=== PATIENT | male | born 1935 | race Caucasian/White ===

== ENCOUNTER 2020-06-17 09:47 | Outpatient (REF) | payer MEDICARE, SELFPAY ==
--- NOTE | ~2020-06-17 | XR_ITS ---
EXAMINATION: BILATERAL SHOULDER X-RAY CLINICAL INFORMATION: Pain COMPARISON: None TECHNIQUE: 4 views of each shoulder FINDINGS: Bone alignment is normal. No fracture or dislocation is seen. There is mild arthritis at the acromioclavicular and glenohumeral joints with joint space narrowing and osteophyte formation, left greater than right. Soft tissues are unremarkable. XR/XR shoulder LT min 2V IMPRESSION: Mild bilateral arthritis, left greater than right.
--- NOTE | ~2020-06-17 | XR_ITS ---
EXAMINATION: BILATERAL SHOULDER X-RAY CLINICAL INFORMATION: Pain COMPARISON: None TECHNIQUE: 4 views of each shoulder FINDINGS: Bone alignment is normal. No fracture or dislocation is seen. There is mild arthritis at the acromioclavicular and glenohumeral joints with joint space narrowing and osteophyte formation, left greater than right. Soft tissues are unremarkable. XR/XR shoulder RT min 2V IMPRESSION: Mild bilateral arthritis, left greater than right.
[2020-06-17 10:41] LABS: Cholesterol 139 mg/dL; HDL Cholesterol 50 mg/dL; LDL Cholesterol Calculated 71 mg/dl; Triglycerides 92 mg/dL; Uric Acid 5.6 mg/dL (3.4-7.0)
[2020-06-17 11:02] LABS: Erythrocyte Sedimentation Rate 23 MM/HR (0-15)
== END 2020-06-17 09:48 | disposition home or self-care (01) ==
LOC: HO.LAB 09:47
PROVIDERS: PCP Internal Medicine; Visit Provider Internal Medicine
DX: M25.512 Pain in left shoulder (principal); M25.511 Pain in right shoulder; G89.29 Other chronic pain; E11.9 Type 2 diabetes mellitus without complications; E03.9 Hypothyroidism, unspecified; M10.9 Gout, unspecified
CPT/HCPCS: 36415; 73030; 80061; 84443; 84550; 85652

== ENCOUNTER 2020-08-08 08:00 | Outpatient (RCR) | payer MEDICARE, SELFPAY ==
--- NOTE | 2020-07-02 13:55 | MHC.PT.EP ---
[facility] [place] Office [place] Office [place] Office [address] Erick Harrell [address] [phone] F: [phone] F: [phone] F: [phone] F: [phone] Physical Therapy Plan of Care Date of Evaluation: 07/02/20 Date of Surgery: Diagnosis: Chronic pain of both shoulders M25.511; M25.512; G89.29 Assessment: PINA IS A PLEASANT 84 YO GENTLEMAN WHO ARRIVES WITH MORGAN SHOULDER PAIN S/S CONSISTENT WITH IMPINGEMENT SYNDROME. IMPAIRMENTS INCLUDE DECREASED SHOULDER ROM AND STRENGTH, ALTERED POSTURE AND POSITIONING, ALTERED SOFT TISSUE MOBILITY LEADING TO INCREASED PAIN. FUNCTIONAL LIMITATONS INCLUDE DECREASED TOLERANCE TO LIFTING, REACHING, PUSHING AND PULLING, DRESSING AND BATHING. HE REPORTS DECREASED PARTICIPATION IN FITNESS AND RECREATIONAL ACTIVITIES AND DUE TO COVID HAS BEEN UNABLE TO PERFORM VOLUNTEER DUTIES AT [facility]. HE ALSO REPORTS DISRUPTED SLEEP Frequency and Duration: The patient will be seen 2 X WEEK FOR 6 WEEKS Short Term Goals: INITIATE HEP AND PROMOTE SELF MANAGEMENT OF SYMPTOMS IN 2 WEEKS EDUC IN JOINT PROTECTION AND APPROPRIATE POSTURE/POSITIONING Nursing Home Goals: FULL, PAIN FREE ROM EQUAL MORGAN IN 6 WEEKS FULL UE STRENGTH EQUAL MORGAN IN 6 WEEKS INDEPENDENT HEP IN 6 WEEKS TO REPORT SLEEPING AT MINIMUM 4 HOURS AT A TIME WITHOUT WAKING WITH PAIN IN 6 WEEKS Treatment Plan: Modalities to reduce pain, spasms and effusion. Manual therapy to restore motion and function. Therapeutic exercise to improve strength and flexibility. Neuromuscular re-education for posture and balance. Therapeutic activities to return to functional activities of daily living. Electronically signed by: DEJUAN DAVIS PT, DPT Please sign and return to therapist. Thank you for your referral.
--- NOTE | 2020-08-08 12:54 | MHC.PT.DC ---
[facility] [place] Office [place] Office [place] Office [address] Erick Harrell 140 [facility] [phone] F: [phone] F: [phone] F: [phone] F: [phone] Physical Therapy Discharge Report Diagnosis: Chronic pain of both shoulders M25.511; M25.512; G89.29 Date of Surgery: Date of Evaluation: 07/02/20 Date of Discharge: 08/08/20 Treatments to Date: 12 Cancellations to Date: 0 No Shows to Date: 0 Discharge Status: Achieved Goals Improved Function Independent with HEP Discharge Summary: OVERALL, PINA IMPROVED ANTICIPATED WITH PT EVIDENCED BY IMPROVED SHOULDER AND ELBOW RANGE OF MOTION AND STRENGTH. HE ALSO SHOWS IMPROVED FUNCTIONAL MOBILITY AND PAIN HAS BEEN ELIMINATED IN SHOULDERS AND IS RATED 2 AT WORST IN ELBOWS. HE HAS REPORTED INCREASING WRIST PAIN, ESPECIALLY AT NIGHT AND WE WOULD RECOMMEND REFERRAL TO OCCUPATIONAL THERAPY. HE HAS MET PT GOALS ON THIS DATE AND IS DCed TO HEP. Electronically signed by: Debby Swenson PT, DPT Please sign and return to therapist. Thank you for your referral.
== END 2020-08-27 12:50 | disposition other institution (70) ==
LOC: HO.PT 08:00
PROVIDERS: PCP Internal Medicine; Visit Provider Internal Medicine
DX: M25.511 Pain in right shoulder (principal); M25.512 Pain in left shoulder; G89.29 Other chronic pain
CPT/HCPCS: 97110; 97140; 97162; 97530

== ENCOUNTER 2020-08-21 08:47 | Outpatient (REF) | payer MEDICARE, SELFPAY ==
--- NOTE | ~2020-08-21 | XR_ITS ---
EXAMINATION: XR CERVICAL SPINE CLINICAL INFORMATION: Cervicalgia. COMPARISON: Cervical spine radiographs dated 08/28/2014. TECHNIQUE: 3 views of the cervical spine were obtained. FINDINGS: Cervical lordosis is preserved. Atlantodens interval is normal. The dens is obscured by overlying soft tissues. C1-C2 articulation appears normally aligned. There is multilevel anterior endplate marginal osteophytes and degenerative disc disease most prominent at C5-C6. Of note, C6-C7 and C7-T1 evaluation is limited on the lateral view by overlying shoulder soft tissues. There is no acute listhesis. No visualized fracture within the limitations of plain radiographic examination. Small calcifications in the bilateral neck soft tissues likely vascular calcifications. Visualized lung apices are clear. XR/XR cervical spine 2V IMPRESSION: No acute fracture or traumatic listhesis. Multilevel anterior endplate marginal osteophytosis and degenerative disc disease most prominent at C5-C6.
[2020-08-21 11:19] LABS: Erythrocyte Sedimentation Rate 32 MM/HR (0-15)
== END 2020-08-21 08:48 | disposition home or self-care (01) ==
LOC: HO.LAB 08:47
PROVIDERS: PCP Internal Medicine; Visit Provider Internal Medicine
DX: M54.2 Cervicalgia (principal); G89.29 Other chronic pain; M25.511 Pain in right shoulder; M25.512 Pain in left shoulder
CPT/HCPCS: 36415; 72040; 85652

== ENCOUNTER 2020-08-26 13:55 | Outpatient (REF) | payer MEDICARE, SELFPAY ==
--- NOTE | ~2020-08-26 | XR_ITS ---
EXAMINATION: XR LUMBOSACRAL SPINE CLINICAL INFORMATION: Back pain COMPARISON: None TECHNIQUE: Three views of the lumbosacral spine. FINDINGS: Bone alignment is normal. No fracture or dislocation is seen. Disc spaces are normal. There is multilevel degenerative spondylosis from L1-L2 to L4-L5. There is lower lumbar spine facet arthritis. There is atherosclerotic disease. XR/XR lumbar spine 2-3V IMPRESSION: Degenerative changes.
[2020-08-27 08:51] LABS: Lyme Abs Screen <0.90 index
== END 2020-08-26 13:56 | disposition home or self-care (01) ==
LOC: HO.XRAY 13:55
PROVIDERS: PCP Internal Medicine; Visit Provider Internal Medicine
DX: G89.29 Other chronic pain (principal); M25.511 Pain in right shoulder; M25.512 Pain in left shoulder; M54.9 Dorsalgia, unspecified
CPT/HCPCS: 36415; 72100; 86617; 86618

== ENCOUNTER 2020-09-12 11:09 | Outpatient (REF) | payer MEDICARE, SELFPAY ==
[2020-09-12 13:59] LABS: Glucose Urine UA NEG (NEG); Leukocyte Esterase Urine NEG (NEG); Nitrite Urine NEG (NEG); PH 5.5 (5.0-8.0); Urine Blood NEG (NEG); Urine Ketones NEG (NEG); Urine Protein NEG (NEG-TRACE)
[2020-09-12 14:00] LABS: Appearance Urine CLEAR; Color Urine YELLOW
[2020-09-12 14:01] LABS: Hematocrit 36.6 % (42-52); Hemoglobin 11.6 g/dl (14.0-18.0); Mean Corpuscular HGB Conc 31.7 g/dl (31.0-36.0); Mean Corpuscular Hemoglobin 30.2 pg (27.0-33.0); Mean Corpuscular Volume 95.3 fL (80-98); Mean Platelet Volume 9.9 fL (9.4-12.4); Platelet Count 130 X10*3/uL (160-400); Red Blood Count 3.84 X10*6/uL (4.60-5.80); Red Cell Distribution Width 13.3 % (11.0-16.0); White Blood Count 8.8 X10*3/uL (4.8-10.8)
[2020-09-12 14:15] LABS: RBC Urine 0-2 /HPF (0); WBC Urine 0-2 /HPF (0-4)
[2020-09-12 14:21] LABS: Albumin Level 3.9 g/dL (3.5-5.0); Calcium 9.2 mg/dL (8.4-10.2); Magnesium 2.2 mg/dL (1.6-2.6); Phosphorus 2.7 mg/dL (2.7-4.5)
[2020-09-12 14:33] LABS: Creatinine Urine 52.29 mg/dL; Microalbum/Creatinine Ratio Ur 19.1 ug/mg cr; Total Protein Urine Random < 7 mg/dL (<12)
[2020-09-12 14:45] LABS: Vitamin D 25-OH Total 29.2 ng/mL (>30)
[2020-09-13 14:22] LABS: Calcium (PTHI) 8.8 mg/dL (8.6-10.3); PTHI 70 pg/mL (14-64)
== END 2020-09-12 11:10 | disposition home or self-care (01) ==
LOC: HO.10HDL 11:09
PROVIDERS: Visit Provider Internal Medicine Nephrology
DX: I12.9 Hypertensive chronic kidney disease with stage 1 through stage 4 chronic kidney disease, or unspecified chronic kidney disease (principal); N18.31 Chronic kidney disease, stage 3a
CPT/HCPCS: 36415; 81001; 82040; 82043; 82306; 82310; 83735; 83970; 84100; 84156; 85027; 87086; 87088; 87186

== ENCOUNTER → 2020-10-18 08:39 | Outpatient (BNVA) | payer OTHER, MEDICARE, SELFPAY | PROVIDERS: PCP Internal Medicine; Visit Provider Orthopaedic Surgery | DX: M75.102 Unspecified rotator cuff tear or rupture of left shoulder, not specified as traumatic (principal) | CPT/HCPCS: 20610; 99202; J1100 ==

== ENCOUNTER → 2020-10-30 08:35 | Outpatient (BNVA) | payer MEDICARE, SELFPAY | PROVIDERS: PCP Internal Medicine; Visit Provider Physician Assistant | DX: M75.102 Unspecified rotator cuff tear or rupture of left shoulder, not specified as traumatic (principal); M79.89 Other specified soft tissue disorders; I10 Essential (primary) hypertension | CPT/HCPCS: 99212 ==

== ENCOUNTER → 2020-11-18 08:35 | Outpatient (BNVA) | payer MEDICARE, SELFPAY | PROVIDERS: PCP Internal Medicine; Visit Provider Orthopaedic Surgery | DX: M79.89 Other specified soft tissue disorders (principal); M25.511 Pain in right shoulder; M25.512 Pain in left shoulder; G89.29 Other chronic pain; I10 Essential (primary) hypertension; R26.89 Other abnormalities of gait and mobility | CPT/HCPCS: 99212 ==

== ENCOUNTER 2021-01-03 08:00 | Outpatient (RCR) | payer MEDICARE, SELFPAY ==
--- NOTE | 2020-12-02 15:47 | MHC.PT.EP ---
[facility] [place] Office [place] Office [place] Office [address] Harrell [address] [phone] F: [phone] F: [phone] F: [phone] F: [phone] Physical Therapy Plan of Care Date of Evaluation: Date of Surgery: NA Diagnosis: ABNORMALITIES OF GAIT Assessment: PINA IS A PLEASANT 85 YO MALE WHO REPORTS INCREASING BALANCE DIFFICULTIES OVER THE LAST FEW MONTHS. UPON EXAM, HE DEMONSTRATES DECREASED SLS TIME, ALTERED GAIT AND BALANCE. FUNCTIONAL LIMITATIONS INCLUDE DECREASED ABILITY TO PERFORM HOMEMAKING AND SELFCARE TASKS, DECREASED ABILITY TO PERFORM STAIRS, XFERS. HE REQUIRES INCREASED TIME TO COMPLETE TASKS, CANNOT AMBULATE LONG DISTANCES AND HAS DECREASED PARTICIPATION IN COMMUNITY ACTIVITIES. Frequency and Duration: The patient will be seen 2 X WEEK FOR 4 WEEKS Short Term Goals: INITIATE HEP IN 2 VISITS [facility] Goals: TO TOLERATE 30 SLS WITH CG IN 4 WEEKS TO PERFORM SIT TO STEP XFERS WITH MOD I IN 4 WEEKS TO PERFORM RECIPROCAL GAIT ON 1 FLIGHT OF STAIRS 4 WEEKS Treatment Plan: Modalities to reduce pain, spasms and effusion. Manual therapy to restore motion and function. Therapeutic exercise to improve strength and flexibility. Neuromuscular re-education for posture and balance. Therapeutic activities to return to functional activities of daily living. Electronically signed by: DEJUAN DAVIS PT, DPT Please sign and return to therapist. Thank you for your referral.
--- NOTE | 2021-01-03 09:18 | MHC.PT.DC ---
[facility] [place] Office [place] Office [place] Office [address] Erick Harrell [address] [phone] F: [phone] F: [phone] F: [phone] F: [phone] Physical Therapy Discharge Report Diagnosis: ABNORMALITIES OF GAIT Date of Surgery: NA Date of Evaluation: 12/02/20 Date of Discharge: 01/03/21 Treatments to Date: 10 Cancellations to Date: 0 No Shows to Date: 0 Discharge Status: Achieved Goals Improved Function Discharge Summary: Pt was D/C from therapy today as he has met all of his goals. He is demonstrating increases in strength and balance both dynamic and static. PT is independent in HEP and is eager to stay active. Pt was instructed to call if he has any questions. Electronically signed by: DEJUAN DAVIS PT, DPT Please sign and return to therapist. Thank you for your referral.
== END 2021-06-27 14:06 | disposition home or self-care (01) ==
LOC: HO.PT 08:00
PROVIDERS: PCP Internal Medicine; Visit Provider Internal Medicine
DX: R26.89 Other abnormalities of gait and mobility (principal)
CPT/HCPCS: 97110; 97161; 97530; 97535

== ENCOUNTER 2021-05-22 08:15 | Outpatient (REF) | payer MEDICARE, SELFPAY ==
[2021-05-22 11:09] LABS: Alanine Aminotransferase 12 U/L (0-40); Albumin Level 3.9 g/dL (3.5-5.0); Alkaline Phosphatase 91 U/L (39-117); Anion Gap 15 (12-20); Aspartate Amino Transferase 15 U/L (5-37); Bilirubin Total 0.7 mg/dL (0.0-1.0); Blood Urea Nitrogen 32 mg/dL (9-16); Calcium 9.6 mg/dL (8.4-10.2); Carbon Dioxide 24 mmol/L (22-29); Chloride 105 mmol/L (96-108); Cholesterol 215 mg/dL; Estimated Glomerular Filt Rate 43; Glucose Fasting 105 mg/dL (60-99); HDL Cholesterol 60 mg/dL; LDL Cholesterol Calculated 140 mg/dl; Potassium 4.6 mmol/L (3.3-5.1); Sodium 139 mmol/L (135-145); Total Protein 6.7 g/dL (6.5-8.0); Triglycerides 76 mg/dL
== END 2021-05-22 08:16 | disposition home or self-care (01) ==
LOC: HO.10HDL 08:15
PROVIDERS: Nurse Practitioner Family; Visit Provider Internal Medicine
DX: E11.9 Type 2 diabetes mellitus without complications (principal)
CPT/HCPCS: 36415; 80053; 80061

== ENCOUNTER 2021-10-16 08:50 | Outpatient (REF) | payer MEDICARE, SELFPAY ==
[2021-10-16 10:34] LABS: Cholesterol 213 mg/dL; HDL Cholesterol 65 mg/dL; LDL Cholesterol Calculated 138 mg/dl; Triglycerides 51 mg/dL
== END 2021-10-16 08:51 | disposition home or self-care (01) ==
LOC: HO.10HDL 08:50
PROVIDERS: Visit Provider Internal Medicine
DX: Z00.00 Encounter for general adult medical examination without abnormal findings (principal); E78.5 Hyperlipidemia, unspecified
CPT/HCPCS: 36415; 80061

== ENCOUNTER 2021-11-27 07:58 | Outpatient (REF) | payer MEDICARE, SELFPAY ==
--- NOTE | ~2021-11-27 | CT_ITS ---
EXAMINATION: CT HEAD WITHOUT CONTRAST CLINICAL INFORMATION: Other general symptoms and signs COMPARISON: None TECHNIQUE: Contiguous axial imaging was performed from the skull base to vertex without intravenous administration of contrast. This CT examination was performed using dose optimization techniques as appropriate, variously including the following: *Automated exposure control *Adjustment of mA and/or kV according to patient size (this includes techniques or standardized protocols for targeted exams where dose is matched to indication/reason for exam; i.e. extremities or head) *Use of iterative reconstruction technique DLP: 816 mGy-cm FINDINGS: There is no evidence of an extra-axial collection. There is no evidence of intra-axial or extra-axial hemorrhage. The ventricles and extra-axial CSF spaces are prominent suggestive of generalized atrophy. There is nonspecific periventricular white matter disease. No mass, mass effect or infarct is seen. Review of bone windows is normal. No skull fracture or bone lesion is seen. There is membranous soft tissue thickening seen in the floor of the right maxillary sinus. The paranasal sinuses, mastoid air cells and middle ears are otherwise clear. CT/CT head/brain wo con IMPRESSION: Generalized atrophy and nonspecific periventricular white matter disease. Mild right maxillary sinus disease.
== END 2021-11-27 07:59 | disposition home or self-care (01) ==
LOC: HO.CT 07:58
PROVIDERS: PCP Internal Medicine; Visit Provider Nurse Practitioner Family
DX: R68.89 Other general symptoms and signs (principal); R41.3 Other amnesia
CPT/HCPCS: 70450

== ENCOUNTER 2022-02-06 08:35 | Outpatient (REF) | payer MEDICARE, SELFPAY ==
[2022-02-06 10:50] LABS: Anion Gap 15 (12-20); Blood Urea Nitrogen 32 mg/dL (9-16); Calcium 9.3 mg/dL (8.4-10.2); Carbon Dioxide 26 mmol/L (22-29); Chloride 104 mmol/L (96-108); Estimated Glomerular Filt Rate 39; Glucose Random 106 mg/dL (60-115); Potassium 4.7 mmol/L (3.3-5.1); Sodium 140 mmol/L (135-145)
[2022-02-06 11:15] LABS: T4 Thyroxine 5.9 ug/dL (4.5-12.0); Thyroid Stimulating Hormone 2.15 uIU/mL (0.32-4.0)
[2022-02-06 11:28] LABS: Vitamin B12 224 pg/mL (200-900)
== END 2022-02-06 08:36 | disposition home or self-care (01) ==
LOC: HO.10HDL 08:35
PROVIDERS: Visit Provider Psychiatry & Neurology Neurology
DX: G31.84 Mild cognitive impairment of uncertain or unknown etiology (principal)
CPT/HCPCS: 36415; 80048; 82607; 82746; 84436; 84443

== ENCOUNTER 2022-12-04 08:22 | Outpatient (AMB) | payer MEDICARE, SELFPAY ==
--- NOTE | 2022-12-04 08:36 | MHC.PC.OV ---
Vital Signs 12/04/22 08:38 Height 5 ft 9 in Weight 167 lb 6 oz BMI 24.7 BP 120/68 Blood Pressure Location Lt brachial Position Sitting Pulse 68 Pulse Source Pulse Oximeter Pulse Oximetry (%) 99 Oxygen Delivery Method Room Air Intake Visit Reasons: 3M follow up Intake Note: Patient is here to follow up on HTN, Hyperlipidemia. 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: Not Required per policy Accompanied by: Self / Same As Patient Allergies No Known Allergies Allergy (Verified 12/04/22 08:37) Tobacco use date assessed: 12/04/22 Fall risk assessment: No Falls in past year Last assessed Fall Risk: 12/04/22 Dental Screening Dental Screen Date: 12/04/22 Did you have a dental visit in the last 12 months?: Yes Did you have a dental problem in the last 6 months where you did not have access to dental care?: No Was dental information given to patient?: Patient has dentist HPI 3M follow up HPI Details hyperlip; stopped rx and will repeat labs; feels well [facility] Medical History Hypertension Screening for diabetes mellitus Surgical History History of colectomy History of colostomy History of drainage of abscess Family History Father No problems noted. Mother No problems noted. Social History Housing: House Alcohol intake: current Alcohol intake frequency: a few times a week Alcohol type: beer Patient Tobacco Use Status: Never used Tobacco e-Cigarette/Vaping Use: Never Used Second Hand Smoke Exposure: No service: No Current occupational status: retired Current occupation: Rt handed. Cognitive needs: No Hearing needs: No Vision needs: Yes (glasses) Questionnaire PHQ-9 Over the last 2 weeks, how often have you been bothered by any of the following problems? Depression Screening Interpretation: Negative Source: Developed by Drs. Vu Thomas, Sharon Sanchez, Clifford Soriano and colleagues, with an educational paula from [employer]. Thrive Questionnaire Date Thrive assessed: 06/01/22 Currently or been in a relationship where the following occur: no concerns reported KAYLEEN-7 AMB Questionnaire KAYLEEN-7 Date KAYLEEN - 7 assessed: 06/01/22 Source: Developed by Drs. Vu Thomas, Sharon Sanchez, Clifford Soriano and colleagues, with an educational paula from [employer]. Review of Systems Const Denies chills, Denies headache(s) and Denies weight loss ENT Denies headache(s) Card Denies chest pain, Denies syncope, Denies irregular heart rhythm and Denies dyspnea Resp Denies chest congestion, Denies cough and Denies dyspnea GI Denies abdominal pain, Denies change in stool character, Denies nausea and Denies vomiting Musc Denies deformity and Denies joint swelling Neuro Denies syncope and Denies headache(s) Physical exam (Primary Care) Vital Signs: Last Vital Signs Pulse 68 12/04/22 08:38 BP 120/68 12/04/22 08:38 Pulse Ox 99 12/04/22 08:38 Oxygen Delivery Method Room Air 12/04/22 08:38 BMI result Body Mass Index 24.7 Tobacco/Smoking Status: Tobacco use Status Tobacco use date assessed 12/04/22 12/04/22 08:42 Patient Tobacco Use Status Never used Tobacco 12/04/22 08:42 e-Cigarette/Vaping Use Never Used 12/04/22 08:42 Depression Screening Interpretation: Negative Thrive Assessment: Date of Thrive Assessment Date Thrive assessed 06/01/22 12/04/22 08:42 Currently or been in a relationship where the following occur: no concerns reported Const General: cooperative and comfortable Resp Effort & Inspection: normal respiratory effort Auscultation: clear to auscultation bilaterally Percussion: percussion normal Cardio Jugular venous distension: no JVD Rate: regular rate Rhythm: regular rhythm GI Inspection: Yes normal to inspection Assessment and Plan Assessment & Plan (1) Hyperlipidemia: Code(s): E78.5 - Hyperlipidemia, unspecified Qualifiers: Hyperlipidemia type: unspecified Qualified Code(s): E78.5 - Hyperlipidemia, unspecified Plan: stable; Coding Level of Care Code Est Pt Level 3 (64103) Diagnoses Hyperlipidemia E78.5 Hyperlipidemia type: unspecified
[2022-12-04 08:38] VITALS: BP 120/68; PULSE 68; O2SAT 99; BMI 24.7
== END 2022-12-04 08:59 | disposition home or self-care (01) ==
PROVIDERS: Visit Provider Internal Medicine
DX: E78.5 Hyperlipidemia, unspecified (principal)
CPT/HCPCS: 99213

== ENCOUNTER 2023-03-31 08:17 | Outpatient (REF) | payer MEDICARE, SELFPAY ==
[2023-03-31 10:36] LABS: MANUAL DIFF FLAG NO
[2023-03-31 10:46] LABS: Basophils Percent Auto 0.5 % (0-2); Eosinophils Absolute Auto 0.2 X10*3/uL (0.0-0.4); Eosinophils Percent Auto 3.5 % (0-4); Hematocrit 39.1 % (42.0-52.0); Imm Gran Abs Auto 0.02 X10*3/uL (0.00-0.03); Imm Gran Pct Auto 0.3 % (0.0-0.4); Lymphocytes Absolute Auto 1.3 X10*3/uL (1.2-4.9); Lymphocytes Percent Auto 22.4 % (20-40); Mean Corpuscular HGB Conc 33.2 g/dl (31.0-36.0); Mean Corpuscular Hemoglobin 32.8 pg (27.0-33.0); Mean Corpuscular Volume 98.7 fL (80.0-98.0); Mean Platelet Volume 9.8 fL (9.4-12.4); Monocytes Absolute Auto 0.7 X10*3/uL (0.1-1.2); Monocytes Percent Auto 12.3 % (2-11); Neutrophils Absolute Auto 3.5 x10*3/uL (2.0-8.3); Platelet Count 145 X10*3/uL (160-400); Red Blood Count 3.96 X10*6/uL (4.60-5.80); Red Cell Distribution Width 12.6 % (11.0-16.0); White Blood Count 5.8 X10*3/uL (4.8-10.8)
[2023-03-31 11:48] LABS: Alanine Aminotransferase 16 U/L (0-40); Albumin Level 4.1 g/dL (3.5-5.0); Alkaline Phosphatase 83 U/L (39-117); Anion Gap 13 (12-20); Aspartate Amino Transferase 21 U/L (5-37); Bilirubin Total 0.7 mg/dL (0.0-1.0); Blood Urea Nitrogen 26 mg/dL (9-16); Calcium 9.6 mg/dL (8.4-10.2); Carbon Dioxide 27 mmol/L (22-29); Chloride 104 mmol/L (96-108); Cholesterol 238 mg/dL (<200); Estimated Glomerular Filt Rate 38; Glucose Fasting 119 mg/dL (60-99); HDL Cholesterol 78 mg/dL (>40); LDL Cholesterol Calculated 145 mg/dL (<100); Potassium 4.8 mmol/L (3.3-5.1); Sodium 139 mmol/L (135-145); Total Protein 7.1 g/dL (6.5-8.0); Triglycerides 77 mg/dL (<150)
[2023-03-31 12:05] LABS: Thyroid Stimulating Hormone 2.77 uIU/mL (0.32-4.0)
== END 2023-03-31 08:18 | disposition home or self-care (01) ==
LOC: HO.10HDL 08:17
PROVIDERS: Visit Provider Internal Medicine
DX: E03.9 Hypothyroidism, unspecified (principal); D64.9 Anemia, unspecified; N28.9 Disorder of kidney and ureter, unspecified; E78.5 Hyperlipidemia, unspecified
CPT/HCPCS: 36415; 80053; 80061; 84443; 85025

== ENCOUNTER 2023-04-06 09:49 | Outpatient (AMB) | payer MEDICARE, SELFPAY ==
[2023-04-06 09:54] VITALS: BP 110/70; PULSE 70; O2SAT 98; BMI 24.4
--- NOTE | 2023-04-06 09:54 | A.OFFVIS_ITS ---
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 Mother No problems noted. Social History Housing: House Alcohol intake: current Alcohol intake frequency: a few times a week Alcohol type: beer Patient Tobacco Use Status: Never used Tobacco e-Cigarette/Vaping Use: Never Used Second Hand Smoke Exposure: No service: No Current occupational status: retired Current occupation: Rt handed. Cognitive needs: No Hearing needs: No Vision needs: Yes (glasses) Questionnaire Medicare Wellness Checkup What is your age?: 80 or older What gender do you identify with?: male During the past 4 weeks, how much have you been bothered by emotional problems such as feeling anxious, depressed, irritable, sad or downhearted, and blue?: not at all During the past 4 weeks, has your physical & emotional health limited your social activities with family, friends, neighbors, or groups?: not at all During the past 4 weeks, how much bodily pain have you generally had?: very mild pain During the past 4 weeks, was someone available to help you if you needed & wanted help?: yes, quite a bit During the past 4 weeks, what was the hardest physical activity you could do for at least 2 minutes?: heavy Can you get to places out of walking distance without help? (For eg., can you travel alone on buses, taxis or drive your car?): Yes Can you go shopping for groceries or clothes without someone's help?: Yes Can you prepare your own meals?: Yes Can you do your housework without help?: Yes Because of any health problems, do you need the help of another person with your personal care needs such as eating, bathing, dressing or getting around the house?: No Can you handle your own money without help?: Yes During the past 4 weeks, how would you rate your health in general?: good During the past 4 weeks how have things been going for you?: very well; could hardly better Are you having difficulties driving your car?: no Do you always fasten your seat belt when you are in a car?: yes, usually During past 4 weeks, have you been bothered by the following: never: Falling or dizzy when standing up, Sexual problems?, Trouble eating well?, Teeth or denture problems?, Problems using the telephone? and Tiredness or fatigue? Have you fallen 2 or more times in the past year?: No Are you afraid of falling?: No Are you a smoker?: no During the past 4 weeks, how many drinks of wine, beer, or other alcoholic beverages did you have?: 2-5 drinks per week Do you exercise for about 20 minutes 3 or more times a week?: no, I usually do not exercise this much Have you been given information to help with the following?: no: Hazards in your house that might hurt you? and no: Keeping track of your medications? How often do you have trouble taking medicines the way you have been told to take them?: I do not have to take medicine How confident are you that you can control & manage most of your health problems?: somewhat confident What is your race?: White Mini Mental State Exam (MMSE) Orientation What is the (year) (season) (date) (day) (month)?: year, season, date, day and month Where are we (state) (county) (town or city) (hospital) (floor)?: state, county, town or city, hospital/clinic and floor Registration Name of 3 unrelated objects clearly and slowly, then ask patient to repeat all 3 of them. (1st repeat determines score. Make sure they can repeat all three): object 1, object 2 and object 3 Recall Ask patient to repeat the 3 items from question #3.: object 1, object 2 and object 3 Score Score: 16 Activity of Daily Living Bathing - sponge bath, tub bath or shower: receives no assistance (gets in/out by self, if usual bathing means Dressing - getting clothes from closets & drawers, including inner/outer garments & fasteners.: gets clothes & gets completely dressed without help Toileting - going to the 'toilet room' for urine/bowel elimination & cleaning self/arranging clothes: goes to toilet room, cleans self, arranges clothes without help Transfer: moves in & out of bed and chair without help (may use support object) Continence: controls urination/bowel movements completely by self Feeding: feeds self without help Total Score: 0 Information obtained from: patient Using telephone: independent Traveling: independent Shopping: independent Preparing meals: independent Housework: independent Taking medicine: independent Managing money: independent PHQ-9 Over the last 2 weeks, how often have you been bothered by any of the following problems? 1. Little interest or pleasure in doing things: not at all 2. Feeling down, depressed, or hopeless: not at all 3. Trouble falling or staying asleep, or sleeping too much: not at all 4. Feeling tired or having little energy: not at all 5. Poor appetite or overeating: not at all 6. Feeling bad about yourself - or that you are a failure or have let yourself or your family down: not at all 7. Trouble concentrating on things, such as reading the newspaper or watching television: not at all 8. Moving or speaking so slowly that other people could have noticed. Or the opposite - being so fidgety or restless that you have been moving around a lot more than usual: not at all 9. Thoughts that you would be better off or of hurting yourself in some way: not at all Total score: 0 Depression Screening Interpretation: Negative Depression Screening Done: Yes 91081 - PHQ-9 Billing: Yes Source: Developed by Drs. Vu Thomas, Sharon Sanchez, Clifford Soriano and colleagues, with an educational paula from [employer]. Review of Systems Const Denies chills, Denies fatigue, Denies headache(s) and Denies weight loss Eyes Denies change in vision, Denies diplopia and Denies eye pain ENT Reports Normal hearing present, Denies vertigo, Denies dizziness, Denies headache(s) and Denies nasal discharge Card Denies chest pain, Denies rapid heart rate and Denies dyspnea on exertion Resp Denies chest congestion, Denies cough, Denies pain with cough and Denies dyspnea on exertion GI Denies abdominal pain, Denies hematochezia and Denies change in bowel habits Musc Denies myalgias, Denies arthralgias and Denies joint swelling Skin/Breast Denies lesions and Denies unusual bruising Neuro Reports Normal hearing present, Denies vertigo, Denies dizziness, Denies headache(s) and Denies focal weakness Endo Denies fatigue Physical Exam Vital Signs: Last Vital Signs Pulse 70 04/06/23 09:54 BP 110/70 04/06/23 09:54 Pulse Ox 98 04/06/23 09:54 Oxygen Delivery Method Room Air 04/06/23 09:54 BMI result Body Mass Index 24.4 Neuro Cranial nerves: Yes Normal hearing present Assessment & Plan Assessment & Plan (1) Encounter for subsequent annual wellness visit (AWV) in Medicare patient: Code(s): Z00.00 - Encounter for general adult medical examination without abnormal findings Plan: neg rhomberg and whisper tests Quality Reporting (2019) Depression/Bipolar (159/160/161/177) PHQ-9: Total score: 0 Coding Level of Care Code Medicare Subsequent (G0439) Diagnoses Encounter for subsequent annual wellness visit (AWV) in Medicare patient Z00.00 CPT Codes Advance Care Planning - Advance Care Planning discussion: On file, no changes ([id number]) Advance Care Planning Advance Care Planning discussion: On file, no changes Forms completed: Health Care Proxy
== END 2023-04-06 10:15 | disposition home or self-care (01) ==
PROVIDERS: PCP Internal Medicine; Visit Provider Internal Medicine
DX: Z00.00 Encounter for general adult medical examination without abnormal findings (principal)
CPT/HCPCS: 1123F; G0439

== ENCOUNTER 2023-07-09 08:22 | Outpatient (AMB) | payer MEDICARE, SELFPAY ==
--- NOTE | 2023-07-09 08:32 | MHC.PC.OV ---
Vital Signs 07/09/23 08:33 Height 5 ft 9 in Weight 164 lb BMI 24.2 BP 136/60 Blood Pressure Location Lt brachial Position Sitting Pulse 70 Pulse Source Pulse Oximeter Pulse Oximetry (%) 97 Oxygen Delivery Method Room Air Intake Visit Reasons: 3mth f/u Seat Cover Maker Required: No Field Operations Coordinator: Not Required per policy Accompanied by: Self / Same As Patient Allergies No Known Allergies Allergy (Verified 07/09/23 08:33) Tobacco use date assessed: 07/09/23 Fall risk assessment: No Falls in past year Last assessed Fall Risk: 07/09/23 Dental Screening Dental Screen Date: 07/09/23 Did you have a dental visit in the last 12 months?: Yes Did you have a dental problem in the last 6 months where you did not have access to dental care?: No Was dental information given to patient?: Patient has dentist HPI 3mth f/u HPI Details has a history of elevated BP but controlled off rx PFSH Medical History Screening for diabetes mellitus Hypertension Surgical History History of colostomy History of drainage of abscess History of colectomy Family History Father No problems noted. Mother No problems noted. Social History Housing: House Alcohol intake: current Alcohol intake frequency: a few times a week Alcohol type: beer Patient Tobacco Use Status: Never used Tobacco e-Cigarette/Vaping Use: Never Used Second Hand Smoke Exposure: No service: No Current occupational status: retired Current occupation: Rt handed. Cognitive needs: No Hearing needs: No Vision needs: Yes (glasses) Questionnaire PHQ-9 Over the last 2 weeks, how often have you been bothered by any of the following problems? 1. Little interest or pleasure in doing things: not at all 2. Feeling down, depressed, or hopeless: not at all 3. Trouble falling or staying asleep, or sleeping too much: not at all 4. Feeling tired or having little energy: not at all 5. Poor appetite or overeating: not at all 6. Feeling bad about yourself - or that you are a failure or have let yourself or your family down: not at all 7. Trouble concentrating on things, such as reading the newspaper or watching television: not at all 8. Moving or speaking so slowly that other people could have noticed. Or the opposite - being so fidgety or restless that you have been moving around a lot more than usual: not at all 9. Thoughts that you would be better off or of hurting yourself in some way: not at all Total score: 0 Depression Screening Interpretation: Negative Depression Screening Done: Yes 13099 - PHQ-9 Billing: Yes Source: Developed by Drs. Vu Thomas, Sharon Sanchez, Clifford Soriano and colleagues, with an educational paula from [employer]. Thrive Questionnaire Date Thrive assessed: 07/09/23 I am a: Patient What is your living situation today?: I have a steady place to live Within the past 12 months, did the food you bought not last and you didn't have the money to get more?: Never true Within the past 12 months, did you worry whether your food would run out before you got money to buy more?: Never true Do you have trouble paying for medicines?: No Do you have trouble getting transportation to medical appointments?: No Do you have trouble paying your heating and electricity bill?: No Do you have trouble taking care of your child, family member or friend?: No Do you have trouble with day-to-day activities such as bathing, preparing meals, shopping, managing finances, etc.?: No Are you currently unemployed and looking for a job?: No Are you interested in more education?: No Please select the resources that you would like help with: None THRIVE Score: 0 AUDIT C Alcohol Use Questionnaire (AUDIT-C) 1. How often do you have a drink containing alcohol?: 2-3 times a week 2. How many drinks containing alcohol do you have on a typical day when you are drinking?: 1 or 2 3. How often do you have six or more drinks on one occasion?: Never Total Score: 3 Score Reviewed/Action Taken: Yes KAYLEEN-7 AMB Questionnaire KAYLEEN-7 Date KAYLEEN - 7 assessed: 07/09/23 Feeling nervous, anxious, or on edge: 0 = Not at all Not being able to stop or control worryin = Not at all Worrying too much about different things: 0 = Not at all Trouble relaxin = Not at all Being so restless that it is hard to sit still: 0 = Not at all Becoming easily annoyed or irritable: 0 = Not at all Feeling afraid as if something awful might happen: 0 = Not at all Total KAYLEEN-7 score (0-4 normal; 5-9 mild; 10-14 moderate; 15-21 severe): 0 Source: Developed by Drs. Vu Thomas, Sharon Sanchez, Clifford Soriano and colleagues, with an educational paula from [employer]. KAYLEEN-7 Assessment Billing KAYLEEN-7 Assessment Tool: KAYLEEN-7 Assessment 62960 Review of Systems Const Denies chills, Denies headache(s) and Denies weight loss ENT Denies headache(s) Card Denies chest pain, Denies syncope, Denies irregular heart rhythm and Denies dyspnea Resp Denies chest congestion, Denies cough and Denies dyspnea GI Denies abdominal pain, Denies change in stool character, Denies nausea and Denies vomiting Musc Denies deformity and Denies joint swelling Neuro Denies syncope and Denies headache(s) Physical exam (Primary Care) Vital Signs: Last Vital Signs Pulse 70 07/09/23 08:33 BP 136/60 07/09/23 08:33 Pulse Ox 97 07/09/23 08:33 Oxygen Delivery Method Room Air 07/09/23 08:33 BMI result Body Mass Index 24.2 Tobacco/Smoking Status: Tobacco use Status Tobacco use date assessed 07/09/23 07/09/23 08:38 Patient Tobacco Use Status Never used Tobacco 07/09/23 08:38 e-Cigarette/Vaping Use Never Used 07/09/23 08:38 PHQ-9: PHQ-9 Score PHQ-9: Total score 0 07/09/23 08:38 Depression Screening Interpretation: Negative Thrive Assessment: Date of Thrive Assessment Date Thrive assessed 07/09/23 07/09/23 08:38 Const General: cooperative, comfortable, no acute distress and alert Neck Neck: Yes no lymphadenopathy Thyroid: Thyroid normal Resp Effort & Inspection: normal respiratory effort Auscultation: clear to auscultation bilaterally Percussion: percussion normal Cardio Jugular venous distension: no JVD Palpation: normal PMI Rate: regular rate Rhythm: regular rhythm Heart sounds: S1 normal heart sound present and S2 normal heart sound present GI Inspection: Yes normal to inspection Palpation (GI): No hepatosplenomegaly present Skin General skin exam: no rashes or lesions noted Extrem General: Yes no clubbing, cyanosis or edema Assessment and Plan Assessment & Plan (1) Hypertension: Code(s): I10 - Essential (primary) hypertension Qualifiers: Hypertension type: unspecified Qualified Code(s): I10 - Essential (primary) hypertension Plan: doing well off rx Coding Level of Care Code Est Pt Level 3 (98224) Diagnoses Hypertension, unspecified type I10 Hypertension type: unspecified Additional Codes KAYLEEN-7 Assessment Billing - KAYLEEN-7 Assessment Tool: KAYLEEN-7 Assessment 60956 ([id number])
[2023-07-09 08:33] VITALS: BP 136/60; PULSE 70; O2SAT 97; BMI 24.2
== END 2023-07-09 08:56 | disposition home or self-care (01) ==
PROVIDERS: PCP Internal Medicine; Visit Provider Internal Medicine
DX: I10 Essential (primary) hypertension (principal)
CPT/HCPCS: 99213

== ENCOUNTER 2023-11-02 11:46 | Outpatient (AMB) | payer MEDICARE, SELFPAY ==
[2023-11-02 11:48] VITALS: BP 136/78; PULSE 65; O2SAT 98; BMI 23.8
--- NOTE | 2023-11-02 11:48 | MHC.PC.OV ---
Vital Signs 11/02/23 11:48 Height 5 ft 9 in Weight 161 lb BMI 23.8 BP 136/78 Blood Pressure Location Lt brachial Position Sitting Pulse 65 Pulse Source Pulse Oximeter Pulse Oximetry (%) 98 Oxygen Delivery Method Room Air Intake Visit Reasons: reg check up Allergies No Known Allergies Allergy (Verified 07/09/23 08:33) Tobacco use date assessed: 07/09/23 Fall risk assessment: No Falls in past year Last assessed Fall Risk: 11/02/23 Dental Screening Dental Screen Date: 07/09/23 HPI reg check up HPI Details difficulty ambulating; wide unsteady gait PFSH Medical History Screening for diabetes mellitus Hypertension Surgical History History of colostomy History of drainage of abscess History of colectomy Family History Father No problems noted. Mother No problems noted. Social History Housing: House Alcohol intake: current Alcohol intake frequency: a few times a week Alcohol type: beer Patient Tobacco Use Status: Never used Tobacco e-Cigarette/Vaping Use: Never Used Second Hand Smoke Exposure: No service: No Current occupational status: retired Current occupation: Rt handed. Cognitive needs: No Hearing needs: No Vision needs: Yes (glasses) Questionnaire Thrive Questionnaire Date Thrive assessed: 07/09/23 KAYLEEN-7 AMB Questionnaire KAYLEEN-7 Date KAYLEEN - 7 assessed: 07/09/23 Source: Developed by Drs. Vu Thomas, Sharon Sanchez, Clifford Soriano and colleagues, with an educational paula from [employer]. Review of Systems Const Denies chills, Denies headache(s) and Denies weight loss ENT Denies headache(s) Card Denies chest pain, Denies syncope, Denies irregular heart rhythm and Denies dyspnea Resp Denies chest congestion, Denies cough and Denies dyspnea GI Denies abdominal pain, Denies change in stool character, Denies nausea and Denies vomiting Musc Denies deformity and Denies joint swelling Neuro Denies syncope and Denies headache(s) Physical exam (Primary Care) Vital Signs: Last Vital Signs Pulse 65 11/02/23 11:48 BP 136/78 11/02/23 11:48 Pulse Ox 98 11/02/23 11:48 Oxygen Delivery Method Room Air 11/02/23 11:48 BMI result Body Mass Index 23.8 Tobacco/Smoking Status: Tobacco use Status Tobacco use date assessed 07/09/23 11/02/23 11:52 Patient Tobacco Use Status Never used Tobacco 11/02/23 11:52 e-Cigarette/Vaping Use Never Used 11/02/23 11:52 Thrive Assessment: Date of Thrive Assessment Date Thrive assessed 07/09/23 11/02/23 11:52 Const General: cooperative, comfortable, no acute distress and alert Neck Neck: Yes no lymphadenopathy Thyroid: Thyroid normal Resp Effort & Inspection: normal respiratory effort Auscultation: clear to auscultation bilaterally Percussion: percussion normal Cardio Jugular venous distension: no JVD Palpation: normal PMI Rate: regular rate Rhythm: regular rhythm Heart sounds: S1 normal heart sound present and S2 normal heart sound present GI Inspection: Yes normal to inspection Palpation (GI): No hepatosplenomegaly present Skin General skin exam: no rashes or lesions noted Extrem General: Yes no clubbing, cyanosis or edema Assessment and Plan Assessment & Plan (1) Gait abnormality: Code(s): R26.9 - Unspecified abnormalities of gait and mobility Plan: ct brain Orders: Orders CT head/brain wo IV con Today R26.9 - Unspecified abnormalities of gait and mobility Coding Level of Care Code Est Pt Level 3 (19023) Diagnoses Gait abnormality R26.9
== END 2023-11-02 12:02 | disposition home or self-care (01) ==
PROVIDERS: PCP Internal Medicine; Visit Provider Internal Medicine
DX: R26.9 Unspecified abnormalities of gait and mobility (principal)
CPT/HCPCS: 99213

== ENCOUNTER 2024-04-10 08:44 | Outpatient (AMB) | payer MEDICARE, SELFPAY ==
[2024-04-10 08:56] VITALS: BP 134/62; PULSE 70; O2SAT 96; BMI 24.2
--- NOTE | 2024-04-10 08:57 | A.OFFVIS_ITS ---
Intake Vital Signs 04/10/24 08:56 Height 5 ft 9 in Weight 164 lb BMI 24.2 BP 134/62 Blood Pressure Location Lt brachial Position Sitting Pulse 70 Pulse Source Pulse Oximeter Pulse Oximetry (%) 96 Oxygen Delivery Method Room Air Intake Visit Reasons: SAWV G0439 Allergies No Known Allergies Allergy (Verified 04/10/24 08:57) HPI SAWV G0439 HPI Details healthy [facility] Medical History (Updated 04/11/24 @ 09:15 by Elvis Ayers MD) Encounter for subsequent annual wellness visit (AWV) in Medicare patient Screening for diabetes mellitus Hypertension Surgical History History of colostomy History of drainage of abscess History of colectomy Family History Father No problems noted. Mother No problems noted. Social History Housing: House Alcohol intake: current Alcohol intake frequency: a few times a week Alcohol type: beer Patient Tobacco Use Status: Never used Tobacco e-Cigarette/Vaping Use: Never Used Second Hand Smoke Exposure: No service: No Current occupational status: retired Current occupation: Rt handed. Cognitive needs: No Hearing needs: No Vision needs: Yes (glasses) Questionnaire Medicare Wellness Checkup What is your age?: 80 or older What gender do you identify with?: male During the past 4 weeks, how much have you been bothered by emotional problems such as feeling anxious, depressed, irritable, sad or downhearted, and blue?: not at all During the past 4 weeks, has your physical & emotional health limited your social activities with family, friends, neighbors, or groups?: not at all During the past 4 weeks, how much bodily pain have you generally had?: no pain During the past 4 weeks, was someone available to help you if you needed & wanted help?: yes, as much as I wanted During the past 4 weeks, what was the hardest physical activity you could do for at least 2 minutes?: moderate Can you get to places out of walking distance without help? (For eg., can you travel alone on buses, taxis or drive your car?): Yes Can you go shopping for groceries or clothes without someone's help?: Yes Can you prepare your own meals?: Yes Can you do your housework without help?: Yes Because of any health problems, do you need the help of another person with your personal care needs such as eating, bathing, dressing or getting around the gisela se?: No Can you handle your own money without help?: Yes During the past 4 weeks, how would you rate your health in general?: excellent During the past 4 weeks how have things been going for you?: very well; could hardly better Are you having difficulties driving your car?: no Do you always fasten your seat belt when you are in a car?: yes, usually During past 4 weeks, have you been bothered by the following: never: Falling or dizzy when standing up, Sexual problems?, Trouble eating well?, Teeth or denture problems?, Problems using the telephone? and Tiredness or fatigue? Have you fallen 2 or more times in the past year?: No Are you afraid of falling?: Yes Are you a smoker?: no During the past 4 weeks, how many drinks of wine, beer, or other alcoholic beverages did you have?: no alcohol at all Do you exercise for about 20 minutes 3 or more times a week?: yes, some of the time Have you been given information to help with the following?: yes: Hazards in your house that might hurt you? and yes: Keeping track of your medications? How often do you have trouble taking medicines the way you have been told to take them?: I do not have to take medicine How confident are you that you can control & manage most of your health problems?: very confident What is your race?: White Mini Mental State Exam (MMSE) Orientation What is the (year) (season) (date) (day) (month)?: year, season, date, day and month Where are we (state) (county) (town or city) (hospital) (floor)?: state, county, town or city, hospital/clinic and floor Registration Name of 3 unrelated objects clearly and slowly, then ask patient to repeat all 3 of them. (1st repeat determines score. Make sure they can repeat all three): object 1, object 2 and object 3 Recall Ask patient to repeat the 3 items from question #3.: object 1 Score Score: 14 Activity of Daily Living Bathing - sponge bath, tub bath or shower: receives no assistance (gets in/out by self, if usual bathing means Dressing - getting clothes from closets & drawers, including inner/outer garments & fasteners.: gets clothes & gets completely dressed without help Toileting - going to the 'toilet room' for urine/bowel elimination & cleaning self/arranging clothes: goes to toilet room, cleans self, arranges clothes without help Transfer: moves in & out of bed and chair without help (may use support object) Continence: controls urination/bowel movements completely by self Feeding: feeds self without help Total Score: 0 Information obtained from: patient Using telephone: independent Traveling: independent Shopping: independent Preparing meals: independent Housework: independent Taking medicine: independent Managing money: independent PHQ-9 Over the last 2 weeks, how often have you been bothered by any of the following problems? 1. Little interest or pleasure in doing things: not at all 2. Feeling down, depressed, or hopeless: not at all 3. Trouble falling or staying asleep, or sleeping too much: not at all 4. Feeling tired or having little energy: not at all 5. Poor appetite or overeating: not at all 6. Feeling bad about yourself - or that you are a failure or have let yourself or your family down: not at all 7. Trouble concentrating on things, such as reading the newspaper or watching television: not at all 8. Moving or speaking so slowly that other people could have noticed. Or the opposite - being so fidgety or restless that you have been moving around a lot more than usual: not at all 9. Thoughts that you would be better off or of hurting yourself in some way: not at all Total score: 0 Depression Screening Interpretation: Negative Depression Screening Done: Yes 09052 - PHQ-9 Billing: Yes Source: Developed by Drs. Vu Thomas, Sharon Sanchez, Clifford Soriano and colleagues, with an educational paula from [employer] KAYLEEN-7 AMB Questionnaire KAYLEEN-7 Date KAYLEEN - 7 assessed: 04/10/24 Feeling nervous, anxious, or on edge: 0 = Not at all Not being able to stop or control worryin = Not at all Worrying too much about different things: 0 = Not at all Trouble relaxin = Not at all Being so restless that it is hard to sit still: 0 = Not at all Becoming easily annoyed or irritable: 0 = Not at all Feeling afraid as if something awful might happen: 0 = Not at all Total KAYLEEN-7 score (0-4 normal; 5-9 mild; 10-14 moderate; 15-21 severe): 0 Source: Developed by Drs. Vu Thomas, Sharon Sanchez, Clifford Soriano and colleagues, with an educational paula from [employer] KAYLEEN-7 Assessment Billing KAYLEEN-7 Assessment Tool: KAYLEEN-7 Assessment 15201 Thrive Questionnaire Date Thrive assessed: 04/10/24 I am a: Patient What is your living situation today?: I have a steady place to live Within the past 12 months, did the food you bought not last and you didn't have the money to get more?: Never true Within the past 12 months, did you worry whether your food would run out before you got money to buy more?: Never true Do you have trouble paying for medicines?: No Do you have trouble getting transportation to medical appointments?: No Do you have trouble paying your heating and electricity bill?: No Do you have trouble taking care of your child, family member or friend?: No Do you have trouble with day-to-day activities such as bathing, preparing meals, shopping, managing finances, etc.?: No Are you currently unemployed and looking for a job?: No Are you interested in more education?: No Currently or been in a relationship where the following occur: No concerns reported THRIVE Score: 0 Review of Systems Const Denies chills, Denies fatigue, Denies headache(s) and Denies weight loss Eyes Denies change in vision, Denies diplopia and Denies eye pain ENT Reports Normal hearing present, Denies vertigo, Denies dizziness, Denies headache(s) and Denies nasal discharge Card Denies chest pain, Denies rapid heart rate and Denies dyspnea on exertion Resp Denies chest congestion, Denies cough, Denies pain with cough and Denies dyspnea on exertion GI Denies abdominal pain, Denies hematochezia and Denies change in bowel habits Musc Denies myalgias, Denies arthralgias and Denies joint swelling Skin/Breast Denies lesions and Denies unusual bruising Neuro Reports Normal hearing present, Denies vertigo, Denies dizziness, Denies headache(s) and Denies focal weakness Endo Denies fatigue Physical Exam Vital Signs: Last Vital Signs Pulse 70 04/10/24 08:56 BP 134/62 04/10/24 08:56 Pulse Ox 96 04/10/24 08:56 Oxygen Delivery Method Room Air 04/10/24 08:56 BMI result Body Mass Index 24.2 Neuro Cranial nerves: Yes Normal hearing present Assessment & Plan Assessment & Plan (1) Encounter for subsequent annual wellness visit (AWV) in Medicare patient: Code(s): Z00.00 - Encounter for general adult medical examination without abnormal findings Plan: all papers given to patient; rhomberg and whisper tests normal Quality Reporting (2019) Depression/Bipolar (159/160/161/177) PHQ-9: Total score: 0 Coding Level of Care Code Medicare Subsequent (G0439) Diagnoses Encounter for subsequent annual wellness visit (AWV) in Medicare patient Z00.00 CPT Codes Advance Care Planning - Advance Care Planning discussion: On file, no changes ([id number]) Additional Codes KAYLEEN-7 Assessment Billing - KAYLEEN-7 Assessment Tool: KAYLEEN-7 Assessment 49585 ([id number]) PHQ-9 - 69611 - PHQ-9 Billing: Yes ([id number]) Advance Care Planning Advance Care Planning discussion: On file, no changes Forms completed: Health Care Proxy
== END 2024-04-10 09:12 | disposition home or self-care (01) ==
PROVIDERS: PCP Internal Medicine; Visit Provider Internal Medicine
DX: Z00.00 Encounter for general adult medical examination without abnormal findings (principal)

== ENCOUNTER → 2024-04-10 08:44 | Outpatient (BNVA) | payer MEDICARE, SELFPAY | PROVIDERS: PCP Internal Medicine; Visit Provider Internal Medicine | DX: Z00.00 Encounter for general adult medical examination without abnormal findings (principal); I10 Essential (primary) hypertension | CPT/HCPCS: 96127 ==

== ENCOUNTER 2024-06-13 10:53 | Outpatient (AMB) | payer MEDICARE, SELFPAY ==
[2024-06-13 10:59] VITALS: BP 140/62; PULSE 87; O2SAT 100; BMI 24.1
--- NOTE | 2024-06-13 11:00 | A.OFFVIS_ITS ---
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 Mother No problems noted. Social History Housing: House Alcohol intake: current Alcohol intake frequency: a few times a week Alcohol type: beer Patient Tobacco Use Status: Never used Tobacco e-Cigarette/Vaping Use: Never Used Second Hand Smoke Exposure: No service: No Current occupational status: retired Current occupation: Rt handed. Cognitive needs: No Hearing needs: No Vision needs: Yes (glasses) Questionnaire Medicare Wellness Checkup What is your age?: 80 or older What gender do you identify with?: male During the past 4 weeks, how much have you been bothered by emotional problems such as feeling anxious, depressed, irritable, sad or downhearted, and blue?: not at all During the past 4 weeks, has your physical & emotional health limited your social activities with family, friends, neighbors, or groups?: not at all During the past 4 weeks, how much bodily pain have you generally had?: no pain During the past 4 weeks, was someone available to help you if you needed & wanted help?: yes, as much as I wanted During the past 4 weeks, what was the hardest physical activity you could do for at least 2 minutes?: moderate Can you get to places out of walking distance without help? (For eg., can you travel alone on buses, taxis or drive your car?): Yes Can you go shopping for groceries or clothes without someone's help?: Yes Can you prepare your own meals?: Yes Can you do your housework without help?: Yes Because of any health problems, do you need the help of another person with your personal care needs such as eating, bathing, dressing or getting around the house?: No Can you handle your own money without help?: Yes During the past 4 weeks, how would you rate your health in general?: very good During the past 4 weeks how have things been going for you?: very well; could hardly better Are you having difficulties driving your car?: no Do you always fasten your seat belt when you are in a car?: yes, usually During past 4 weeks, have you been bothered by the following: never: Falling or dizzy when standing up, Sexual problems?, Trouble eating well?, Teeth or denture problems?, Problems using the telephone? and Tiredness or fatigue? Have you fallen 2 or more times in the past year?: No Are you afraid of falling?: No Are you a smoker?: no During the past 4 weeks, how many drinks of wine, beer, or other alcoholic beverages did you have?: 2-5 drinks per week Do you exercise for about 20 minutes 3 or more times a week?: yes, all the time Have you been given information to help with the following?: no: Hazards in your house that might hurt you? and no: Keeping track of your medications? (no meds) How often do you have trouble taking medicines the way you have been told to take them?: I do not have to take medicine How confident are you that you can control & manage most of your health problems?: very confident What is your race?: White Mini Mental State Exam (MMSE) Orientation What is the (year) (season) (date) (day) (month)?: year, season, date, day and month Where are we (state) (county) (town or city) (hospital) (floor)?: state, county, town or city, hospital/clinic and floor Registration Name of 3 unrelated objects clearly and slowly, then ask patient to repeat all 3 of them. (1st repeat determines score. Make sure they can repeat all three): object 1, object 2 and object 3 Recall Ask patient to repeat the 3 items from question #3.: object 1 Score Score: 14 Activity of Daily Living Bathing - sponge bath, tub bath or shower: receives no assistance (gets in/out by self, if usual bathing means Dressing - getting clothes from closets & drawers, including inner/outer garments & fasteners.: gets clothes & gets completely dressed without help Toileting - going to the 'toilet room' for urine/bowel elimination & cleaning self/arranging clothes: goes to toilet room, cleans self, arranges clothes without help Transfer: moves in & out of bed and chair without help (may use support object) Continence: controls urination/bowel movements completely by self Feeding: feeds self without help Total Score: 0 Information obtained from: patient Using telephone: independent Traveling: independent Shopping: independent Preparing meals: independent Housework: independent Taking medicine: independent Managing money: independent PHQ-9 Over the last 2 weeks, how often have you been bothered by any of the following problems? 1. Little interest or pleasure in doing things: not at all 2. Feeling down, depressed, or hopeless: not at all 3. Trouble falling or staying asleep, or sleeping too much: not at all 4. Feeling tired or having little energy: not at all 5. Poor appetite or overeating: not at all 6. Feeling bad about yourself - or that you are a failure or have let yourself or your family down: not at all 7. Trouble concentrating on things, such as reading the newspaper or watching television: not at all 8. Moving or speaking so slowly that other people could have noticed. Or the opposite - being so fidgety or restless that you have been moving around a lot more than usual: not at all 9. Thoughts that you would be better off or of hurting yourself in some way: not at all Total score: 0 Depression Screening Interpretation: Negative Depression Screening Done: Yes 04896 - PHQ-9 Billing: Yes Source: Developed by Drs. Vu Thomas, Sharon Sanchez, Clifford Soriano and colleagues, with an educational paula from [employer]. Review of Systems Const Denies chills, Denies fatigue, Denies headache(s) and Denies weight loss Eyes Denies change in vision, Denies diplopia and Denies eye pain ENT Reports Normal hearing present, Denies vertigo, Denies dizziness, Denies headache(s) and Denies nasal discharge Card Denies chest pain, Denies rapid heart rate and Denies dyspnea on exertion Resp Denies chest congestion, Denies cough, Denies pain with cough and Denies dyspnea on exertion GI Denies abdominal pain, Denies hematochezia and Denies change in bowel habits Musc Denies myalgias, Denies arthralgias and Denies joint swelling Skin/Breast Denies lesions and Denies unusual bruising Neuro Reports Normal hearing present, Denies vertigo, Denies dizziness, Denies headache(s) and Denies focal weakness Endo Denies fatigue Physical Exam Vital Signs: Last Vital Signs Pulse 87 06/13/24 10:59 BP 140/62 H 06/13/24 10:59 Pulse Ox 100 06/13/24 10:59 Oxygen Delivery Method Room Air 06/13/24 10:59 BMI result Body Mass Index 24.1 Neuro Cranial nerves: Yes Normal hearing present Assessment & Plan Assessment & Plan (1) Encounter for subsequent annual wellness visit (AWV) in Medicare patient: Code(s): Z00.00 - Encounter for general adult medical examination without abnormal findings Plan: rhomberg and whisper tests Quality Reporting (2019) Depression/Bipolar (159/160/161/177) PHQ-9: Total score: 0 Coding Level of Care Code Medicare Subsequent (G0439) Diagnoses Encounter for subsequent annual wellness visit (AWV) in Medicare patient Z00.00 CPT Codes Advance Care Planning - Advance Care Planning discussion: On file, no changes ([id number]) Additional Codes PHQ-9 - 85953 - PHQ-9 Billing: Yes ([id number]) Advance Care Planning Advance Care Planning discussion: On file, no changes Forms completed: Health Care Proxy
[2024-06-13 11:05] VITALS: BMI 24.1
--- OUTSIDE RECORDS SUMMARY | 2024-06-13 12:14 | XMS_ITS | Clinical Summary ---
Author Organization [facility] Facility Address [address] [place] [id number] Care Team Providers Care Administrative Professional Name Role Phone Unavailable Primary Care Provider Unavailabl e Allergies No known active allergies Medications No known medications Active Problems Problem Noted Date Diagnosed Date Essential (primary) hypertension 03/09/2023 03/09/2023 Stage 3b chronic kidney disease 02/24/2022 Stage 3a chronic kidney disease 09/03/2020 Renal osteodystrophy 09/03/2020 Chronic kidney disease stage 3 08/27/2020 Hyperparathyroidism due to renal insufficiency 0 08/27/2020 Hypertensive chronic kidney disease, unspecified, 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, or unspecified 08/27/2020 Hypercholesterolemia 05/03/2020 03/09/2023 Overview (03/09/2023): May 10, 2020 Entered By: VASILIY HOU Comment: treated with medication Immunizations Name Administration Dates Next Due Influenza, Unspecified 01/31/2021,02/01/2020 Moderna SARS-COV-2 03/22/2021,06/15/2020, 021 Pneumococcal Polysaccharide 01/10/2019, 0 Family History Relation Status Comments Father Mother Social History Tobacco Use Types Packs/Day Years Used Date Smoking Tobacco: Never Alcohol Use Standard Drinks/Week Comments Yes 0 (1 standard drink = 0.6 oz pure alcohol) Alcoholic Drinks/day: Occasional social drink Sex and Gender Information Value Date Recorded Sex Assigned at Not on file Legal Sex Male 4:48 PM EST Gender Identity Not on file Sexual Orientation Not on file Last Filed Vital Signs Vital Sign Reading Time Taken Comments Blood Pressure 122/65 03/09/2023 1:53 PM EST Pulse 89 03/09/2023 1:53 PM EST Temperature - - Respiratory Rate - - Oxygen Saturation 98% 03/09/2023 1:53 PM EST Inhaled Oxygen Concentration - - Weight 77.3 kg (170 lb 6.4 oz) 03/09/2023 1:53 P M EST Height 175.3 cm (5' 9 ) 12/01/2018 12:00 PM EDT Body Mass Index 25.16 12/01/2018 12:00 PM EDT Plan of Treatment Health Maintenance Due Date Last Done Comments Pneumococcal Vaccine: 65+ Years (3 of 3 - PCV) 01/11/2020 01/10/2019, 07/12/2009 Influenza Vaccine (#1) 2024 1, 02/01/2020 Hepatitis B Vaccine Aged Out No longe r eligible based on patient's age to complete this topic Insurance [facility] MEDICARE [facility] MEDICARE
== END 2024-06-13 11:30 | disposition home or self-care (01) ==
PROVIDERS: PCP Internal Medicine; Visit Provider Internal Medicine
DX: Z00.00 Encounter for general adult medical examination without abnormal findings (principal)

== ENCOUNTER → 2024-06-13 10:53 | Outpatient (BNVA) | payer MEDICARE, SELFPAY | PROVIDERS: PCP Internal Medicine; Visit Provider Internal Medicine | DX: Z00.00 Encounter for general adult medical examination without abnormal findings (principal); I10 Essential (primary) hypertension | CPT/HCPCS: 96127 ==

== ENCOUNTER 2024-09-06 12:22 | Outpatient (AMB) | payer MEDICARE, SELFPAY ==
--- NOTE | 2024-09-06 12:24 | MHC.PC.OV ---
Vital Signs 09/06/24 12:25 Height 5 ft 9 in Weight 157 lb BMI 23.2 BP 130/78 Blood Pressure Location Lt brachial Position Sitting Pulse 61 Pulse Source Pulse Oximeter Pulse Oximetry (%) 97 Oxygen Delivery Method Room Air Intake Visit Reasons: REBEKAH Dr So Break Out Man Required: No Accompanied by: Self / Same As Patient Allergies No Known Allergies Allergy (Verified 09/06/24 12:41) Medication List - Last Reconciled 09/06/24 by Cuca Garrett MD No Known Home Meds Tobacco use date assessed: 09/06/24 Fall risk assessment: No Falls in past year Last assessed Fall Risk: 09/06/24 Dental Screening Dental Screen Date: 09/06/24 Did you have a dental visit in the last 12 months?: Yes Did you have a dental problem in the last 6 months where you did not have access to dental care?: No Was dental information given to patient?: Patient has dentist HPI HPI Comments History of Present Illness Details The patient is an 88-year-old male presenting to [facility]. He regularly attends medical appointments every six months, as advised due to his age. He has chronic kidney disease, Stage 3, with a previously recorded GFR of 38. Additionally, prior testing showed impaired glucose tolerance, with a fasting blood glucose level of 119 mg/dL, necessitating continued observation for potential progression towards diabetes. The patient has elevated cholesterol levels, warranting ongoing monitoring. His medical history includes a colostomy and abscess drainage, both of which pose no current issues. The patient maintains an active lifestyle, exercising regularly, and denies any episodes of chest pain or shortness of breath. Bowel habits remain normal without significant change. [facility] Medical History (Updated 09/06/24 @ 12:52 by Cuca Garrett MD) Forgetfulness Memory loss or impairment Gait abnormality Encounter for subsequent annual wellness visit (AWV) in Medicare patient Encounter for subsequent annual wellness visit (AWV) in Medicare patient Screening for diabetes mellitus Hypertension Surgical History History of colostomy History of drainage of abscess History of colectomy Family History Father No problems noted. Mother No problems noted. Social History Housing: House Alcohol intake: current Alcohol intake frequency: a few times a week Alcohol type: beer Patient Tobacco Use Status: Never used Tobacco e-Cigarette/Vaping Use: Never Used Second Hand Smoke Exposure: No service: No Current occupational status: retired Current occupation: Rt handed. Cognitive needs: No Hearing needs: No Vision needs: Yes (glasses) Questionnaire PHQ-9 Over the last 2 weeks, how often have you been bothered by any of the following problems? 1. Little interest or pleasure in doing things: not at all 2. Feeling down, depressed, or hopeless: not at all 3. Trouble falling or staying asleep, or sleeping too much: not at all 4. Feeling tired or having little energy: not at all 5. Poor appetite or overeating: not at all 6. Feeling bad about yourself - or that you are a failure or have let yourself or your family down: not at all 7. Trouble concentrating on things, such as reading the newspaper or watching television: not at all 8. Moving or speaking so slowly that other people could have noticed. Or the opposite - being so fidgety or restless that you have been moving around a lot more than usual: not at all 9. Thoughts that you would be better off or of hurting yourself in some way: not at all Total score: 0 Depression Screening Interpretation: Negative Depression Screening Done: Yes 93545 - PHQ-9 Billing: Yes Source: Developed by Drs. Vu Thomas, Sharon Sanchez, Clifford Soriano and colleagues, with an educational paula from [employer]. Thrive Questionnaire Date Thrive assessed: 09/06/24 I am a: Patient What is your living situation today?: I have a steady place to live Within the past 12 months, did the food you bought not last and you didn't have the money to get more?: Never true Within the past 12 months, did you worry whether your food would run out before you got money to buy more?: Never true Do you have trouble paying for medicines?: No Do you have trouble getting transportation to medical appointments?: No Do you have trouble paying your heating and electricity bill?: No Do you have trouble taking care of your child, family member or friend?: No Do you have trouble with day-to-day activities such as bathing, preparing meals, shopping, managing finances, etc.?: No Are you currently unemployed and looking for a job?: No Are you interested in more education?: No Please select the resources that you would like help with: None Currently or been in a relationship where the following occur: No concerns reported THRIVE Score: 0 AUDIT C Alcohol Use Questionnaire (AUDIT-C) 1. How often do you have a drink containing alcohol?: 2-3 times a week 2. How many drinks containing alcohol do you have on a typical day when you are drinking?: 1 or 2 3. How often do you have six or more drinks on one occasion?: Never Total Score: 3 Score Reviewed/Action Taken: Yes KAYLEEN-7 AMB Questionnaire KAYLEEN-7 Date KAYLEEN - 7 assessed: 09/06/24 Feeling nervous, anxious, or on edge: 0 = Not at all Not being able to stop or control worryin = Not at all Worrying too much about different things: 0 = Not at all Trouble relaxin = Not at all Being so restless that it is hard to sit still: 0 = Not at all Becoming easily annoyed or irritable: 0 = Not at all Feeling afraid as if something awful might happen: 0 = Not at all Total KAYLEEN-7 score (0-4 normal; 5-9 mild; 10-14 moderate; 15-21 severe): 0 Source: Developed by Drs. Vu Thomas, Sharon Sanchez, Clifford Soriano and colleagues, with an educational paula from [employer]. KAYLEEN-7 Assessment Billing KAYLEEN-7 Assessment Tool: KAYLEEN-7 Assessment 30387 Review of Systems Const All systems reviewed & are unremarkable except as noted in HPI and below Card Denies chest pain at rest, Denies chest pain with activity, Denies edema, Denies irregular heart rhythm, Denies claudication, Denies dyspnea, Denies dyspnea on exertion, Denies orthopnea, Denies paroxysmal nocturnal dyspnea and Denies slow heart rate Resp Denies cough, Denies dyspnea and Denies dyspnea on exertion GI Denies abdominal pain, Denies change in bowel habits, Denies excessive flatus, Denies nausea and Denies vomiting Musc Denies abnormal gait Neuro Denies abnormal gait, Denies behavioral changes and Denies lack of coordination Psych Denies behavioral changes Physical exam (Primary Care) Vital Signs: Last Vital Signs Pulse 61 09/06/24 12:25 BP 130/78 09/06/24 12:25 Pulse Ox 97 09/06/24 12:25 Oxygen Delivery Method Room Air 09/06/24 12:25 BMI result Body Mass Index 23.2 Tobacco/Smoking Status: Tobacco use Status Tobacco use date assessed 09/06/24 09/06/24 12:31 Patient Tobacco Use Status Never used Tobacco 09/06/24 12:31 e-Cigarette/Vaping Use Never Used 09/06/24 12:31 PHQ-9: PHQ-9 Score PHQ-9: Total score 0 09/06/24 12:31 Depression Screening Interpretation: Negative Thrive Assessment: Date of Thrive Assessment Date Thrive assessed 09/06/24 09/06/24 12:31 Currently or been in a relationship where the following occur: No concerns reported Resp Effort & Inspection: normal respiratory effort Auscultation: clear to auscultation bilaterally Cardio Jugular venous distension: no JVD Rate: regular rate Rhythm: regular rhythm Heart sounds: S1 normal heart sound present and S2 normal heart sound present Extrem General: Yes full ROM Coding Level of Care Code Est Pt Level 3 (83425) Complex EM visit Add On G2211 Diagnoses Impaired glucose tolerance R73.02 Hyperlipidemia, unspecified hyperlipidemia type E78.5 Hyperlipidemia type: unspecified Anemia D64.9 CKD (chronic kidney disease) stage 3, GFR 30-59 ml/min N18.30 Additional Codes PHQ-9 - 24142 - PHQ-9 Billing: Yes ([id number]) KAYLEEN-7 Assessment Billing - KAYLEEN-7 Assessment Tool: KAYLEEN-7 Assessment 55068 ([id number]) Time Spent (min) 19 Assessment & Plan Assessment & Plan (1) Impaired glucose tolerance: Code(s): R73.02 - Impaired glucose tolerance (oral) Category: Medical (2) Hyperlipidemia: Code(s): E78.5 - Hyperlipidemia, unspecified Category: Medical Qualifiers: Hyperlipidemia type: unspecified Qualified Code(s): E78.5 - Hyperlipidemia, unspecified (3) Anemia: Code(s): D64.9 - Anemia, unspecified Category: Medical (4) CKD (chronic kidney disease) stage 3, GFR 30-59 ml/min: Code(s): N18.30 - Chronic kidney disease, stage 3 unspecified Category: Medical Plan Monitoring of chronic kidney disease, Stage 3 will continue with recommended blood tests to evaluate renal function. Impaired glucose tolerance requires fasting glucose monitoring, emphasizing dietary and exercise modifications. The moderately elevated cholesterol levels suggest dietary changes and re-evaluation soon. Blood tests can be arranged before the patient's planned travel. Continued vigilance for age-related hearing difficulties is noted; however, no hearing aids are required presently. Follow-up is scheduled for six months or earlier if needed. Patient was informed and verbally consented to the use of an ambient scribe for clinic note documentation during this visit. I discussed the patient's chronic kidney disease, emphasizing the importance of monitoring renal function and the potential risks if not managed appropriately. The impaired glucose tolerance was addressed with a recommendation for regular fasting glucose assessment, discussing diet and exercise to prevent progression to diabetes. For hyperlipidemia, dietary modifications were advised, and follow-up cholesterol evaluation was proposed. The patient was informed of the necessity of blood work prior to travel, and reassurance was offered regarding the minor hearing issues, reinforcing that no hearing aids are needed at this time. Follow-up in six months was confirmed, with options for earlier intervention if necessary. Orders: Orders Lipid Panel Today E78.5 - Hyperlipidemia, unspecified Comprehensive Encinal. Panel Fast Today R73.02 - Impaired glucose tolerance (oral) Complete Blood Count Auto Diff Today D64.9 - Anemia, unspecified IRON PROFILE Today D64.9 - Anemia, unspecified Patient Instructions: - Schedule blood tests for glucose and cholesterol monitoring this week, if possible. - Continue regular exercise and maintain a balanced diet. - Monitor hear for any significant changes in hearing; report if problems escalate. - Return for follow-up in six months, earlier if any health issues arise. - Maintain the current regimen of visiting every six months due to age.
[2024-09-06 12:25] VITALS: BP 130/78; PULSE 61; O2SAT 97; BMI 23.2
--- OUTSIDE RECORDS SUMMARY | 2024-09-06 13:35 | XMS_ITS | Clinical Summary ---
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 Name Role Phone Unavailable Primary Care Provider [...] VASILIY HOU Comment: treated with medication Immunizations Immunization Administration Dates Next Due Influenza, Unspecified 01/31/2021,02/01/2020 [...] Due Date Last Done Comments Pneumococcal Vaccine: 50+ Years (3 of 3 - PCV) 01/11/2020 01/10/2019, 07/12/2009 Influenza Vaccine (Season Ended) 2025 01/31/2021, 02/01/2020 Pneumococcal Vaccine: Peds (0 to 5 Years) and At-Risk Patients (6 to 49 Years) Discontinued 01/10/2019, 07/12/2009 Hepatitis B Vaccine Aged Out No longe r eligible based on patient's age to complete this topic [place] [address] [address] Medicare [facility] Medicare
== END 2024-09-06 12:52 | disposition home or self-care (01) ==
LOC: HO.HMCH 12:23
PROVIDERS: PCP Internal Medicine; Visit Provider Internal Medicine
DX: R73.02 Impaired glucose tolerance (oral) (principal); E78.5 Hyperlipidemia, unspecified; D64.9 Anemia, unspecified; N18.30 Chronic kidney disease, stage 3 unspecified